=== PATIENT | male | born 1990 | race Caucasian/White ===

== ENCOUNTER 2024-02-26 13:07 | Emergency (ER) | payer OTHER, MEDICAID ==
[~2024-02-26] VITALS: Ht 180.3 cm; Wt 58.9 kg
[2024-02-26 14:19] LABS: Basophils # (auto) 0.1 10 ^3/uL (0-0.2); Basophils % (auto) 0.8 % (0.0-2.0); Eosinophils # (auto) 0.4 10 ^3/uL (0-0.8); Eosinophils % (auto) 3.6 % (0.0-7.0); Hematocrit 44.4 % (41.0-53.0); Hemoglobin 15.7 g/dL (13.5-17.5); Lymphocytes # (auto) 2.5 10 ^3/uL (0.4-5.4); Lymphocytes % (auto) 25.1 % (10.0-50.0); Mean Corpuscular Hemoglobin 33.8 pg (28.0-32.0); Mean Corpuscular Hgb Conc. 35.4 g/dL (32.0-36.0); Mean Corpuscular Volume 95.3 fL (80.0-100.0); Monocytes # (auto) 0.9 10 ^3/uL (0-1.3); Monocytes % (auto) 9.3 % (0.0-12.0); Neutrophils % (auto) 61.2 % (37.0-80.0); Platelet Count (auto) 237 10^3/uL (140-450); Red Blood Cells 4.66 10^6/uL (4.5-5.90); Red Cell Distribution Width 13.4 % (11.8-14.3); White Blood Cell 9.9 10^3/uL (4.4-10.8)
[2024-02-26 14:41] LABS: Chloride 108 mmol/L (98-107); Potassium 4.4 mmol/L (3.5-5.1); Sodium 140 mmol/L (136-145)
[2024-02-26 14:42] LABS: Anion Gap 5 (5-15); Carbon Dioxide 27 mmol/L (20-31)
[2024-02-26 14:43] LABS: Calcium 9.3 mg/dL (8.7-10.4)
[2024-02-26 14:47] LABS: Glucose 94 mg/dL (74-106)
[2024-02-26 14:48] LABS: BUN/Creatinine Ratio 11.4 (10.0-20.0); Blood Urea Nitrogen 10 mg/dL (9-23)
[2024-02-26 15:08] VITALS: BP 115/77; PULSE 66; RESP 17; TEMP 98.1; O2SAT 100
[2024-02-26] MEDS ORDERED: IOHEXOL 300 MG/ML 100ML BOTTLE IJ ONE (15:25)
[2024-02-26] MEDS ORDERED: MORPHINE SULFATE 4 MG/ML SYR/VIAL IV ONE (16:30)
[2024-02-26] MEDS ORDERED: ONDANSETRON HCL 4 MG/2 ML VIAL IV ONE (16:30)
[2024-02-26 18:22] LABS: INR 1.06 (0.9-1.15); Partial Thromboplastin Time 29.8 SEC (24.5-34.5); Prothrombin Time 11.2 sec (9.3-11.8)
== END 2024-02-26 20:44 | disposition left against medical advice (07) ==
LOC: ER 13:07
DX: K40.90 Unilateral inguinal hernia, without obstruction or gangrene, not specified as recurrent (principal); F17.210 Nicotine dependence, cigarettes, uncomplicated; F12.90 Cannabis use, unspecified, uncomplicated
CPT/HCPCS: 36415; 74177; 80048; 85025; 85610; 85730; 99285; Q9967

== ENCOUNTER 2024-02-27 07:02 | Inpatient (IN) | payer OTHER, MEDICAID ==
[~2024-02-27] VITALS: Ht 180.3 cm; Wt 60.6 kg
[2024-02-27 08:20] LABS: Basophils # (auto) 0.1 10 ^3/uL (0-0.2); Eosinophils # (auto) 0.4 10 ^3/uL (0-0.8); Eosinophils % (auto) 5.1 % (0.0-7.0); Hematocrit 44.4 % (41.0-53.0); Hemoglobin 15.7 g/dL (13.5-17.5); Lymphocytes % (auto) 22.6 % (10.0-50.0); Mean Corpuscular Hemoglobin 33.8 pg (28.0-32.0); Mean Corpuscular Hgb Conc. 35.4 g/dL (32.0-36.0); Mean Corpuscular Volume 95.4 fL (80.0-100.0); Monocytes # (auto) 0.8 10 ^3/uL (0-1.3); Monocytes % (auto) 9.6 % (0.0-12.0); Neutrophils # (auto) 5.4 10 ^3/uL (1.6-8.6); Neutrophils % (auto) 61.7 % (37.0-80.0); Nucleated Red Blood Cells % 0.1 %; Platelet Count (auto) 237 10^3/uL (140-450); Red Blood Cells 4.65 10^6/uL (4.5-5.90); Red Cell Distribution Width 13.4 % (11.8-14.3); White Blood Cell 8.8 10^3/uL (4.4-10.8)
[2024-02-27 08:27] LABS: Chloride 108 mmol/L (98-107); Potassium 4.3 mmol/L (3.5-5.1); Sodium 140 mmol/L (136-145)
[2024-02-27 08:28] LABS: Anion Gap 6 (5-15); Calcium 9.5 mg/dL (8.7-10.4); Carbon Dioxide 26 mmol/L (20-31)
[2024-02-27 08:33] LABS: BUN/Creatinine Ratio 8.1 (10.0-20.0); Blood Urea Nitrogen 7 mg/dL (9-23); Glucose 87 mg/dL (74-106)
[2024-02-27 13:32] LABS: Urine Bacteria None Seen /hpf (None Seen); Urine WBC None Seen /hpf (0 - 3)
[2024-02-27 14:05] LABS: Urine Blood Negative /uL (Negative); Urine Clarity Clear (Clear); Urine Color Light-Yellow (Yellow); Urine Protein, UAD Negative (Negative); Urine Specific Gravity 1.011 (1.001-1.035); Urine Urobilinogen Normal (Negative)
[2024-02-27] MEDS ORDERED: NITROGLYCERIN 0.4 MG SL TAB SL PRN (14:45)
[2024-02-27] MEDS ORDERED: MORPHINE SULFATE INJ 2 MG/ml SYRG IV PRN (14:45)
[2024-02-27] MEDS ORDERED: DOCUSATE SOD 100 MG CAP PO PRN (14:45)
[2024-02-27] MEDS ORDERED: ONDANSETRON HCL 4 MG/2 ML VIAL IV PRN (14:45)
[2024-02-27] MEDS: HYDROcodone-ACET 5/325MG TAB PO ONE (14:46)
[2024-02-27 15:45] VITALS: PULSE 55; RESP 18; O2SAT 97
[2024-02-27 16:40] VITALS: BP 114/76; PULSE 57; RESP 16; TEMP 98.3; O2SAT 100
[2024-02-27 16:44] LABS: INR 1.06 (0.9-1.15); Partial Thromboplastin Time 28.2 SEC (24.5-34.5); Prothrombin Time 11.2 sec (9.3-11.8)
[2024-02-27 17:00] VITALS: BP 116/76; PULSE 56; RESP 16; TEMP 98.2; O2SAT 100
[2024-02-27] MEDS: SODIUM CHLORIDE 0.9% 1,000 ML IV SCH (17:06)
[2024-02-27 17:23] VITALS: BP 114/76; PULSE 57; RESP 16; TEMP 98.3; O2SAT 100
[2024-02-27] MEDS ORDERED: ceFAZolin 1GM/50ML 50 ML IV ONE (18:30)
[2024-02-27] MEDS: ceFAZolin 1GM/50ML 50 ML IV SCH (20:20)
[2024-02-27 23:16] VITALS: BP 106/65; PULSE 57; RESP 18; TEMP 98.2; O2SAT 98
[2024-02-28] MEDS ORDERED: fentaNYL CITRATE 100 MCG/2 ML VL ONE (08:20)
[2024-02-28] MEDS ORDERED: MIDAZOLAM HCL 2MG/2ML 2ml VIAL (1mg/ml) ONE (08:20)
[2024-02-28] MEDS ORDERED: PROPOFOL 10 MG/ML 20 ML IV ONE (08:20)
[2024-02-28] MEDS ORDERED: ROCURONIUM 10MG/ML 10ML VIAL IV ONE (08:20)
[2024-02-28] MEDS ORDERED: ONDANSETRON HCL 4 MG/2 ML VIAL ONE (08:21)
[2024-02-28] MEDS ORDERED: LIDOCAINE 2% (LOCAL ANESTH.) PF 5ml SDV ONE (08:21)
[2024-02-28] MEDS: LIDOCAINE W/ EPINEPHRINE 1% 20ML VIAL ONE (08:43)
[2024-02-28] MEDS: BUPIVACAINE 0.25% INJ 50ML VIAL ONE (08:43)
[2024-02-28] MEDS ORDERED: MEPERIDINE HCL (25 MG/ML) 1ML VIAL ONE (08:58)
[2024-02-28 09:00] VITALS: BP 113/64; PULSE 54; RESP 18; TEMP 97.5; O2SAT 100
[2024-02-28] MEDS ORDERED: ceFAZolin 1GM VL ONE (09:12)
[2024-02-28] MEDS ORDERED: HYDROmorphone HCL 2 MG/ML VL/or syr IV PRN (09:15)
[2024-02-28] MEDS ORDERED: ONDANSETRON HCL 4 MG/2 ML VIAL IV PRN (09:15)
[2024-02-28 09:34] VITALS: PULSE 60; RESP 13; O2SAT 99
[2024-02-28] MEDS ORDERED: GLYCOPYRROLATE 0.2 MG/ML 1ML VIAL ONE (09:37)
[2024-02-28] MEDS ORDERED: NEOSTIGMINE 1 MG/ML INJ (10mg/10ML VIAL) ONE (09:37)
[2024-02-28] MEDS: KETOROLAC TROMETH 30 MG/ML 1ML VIAL IV ONE (09:45)
[2024-02-28] MEDS: MORPHINE SULFATE INJ 2 MG/ml SYRG IV PRN ×2 (10:14→14:23)
[2024-02-28] MEDS: MEPERIDINE HCL (25 MG/ML) 1ML VIAL IV ONE (10:32)
[2024-02-28] MEDS: MEPERIDINE HCL (25 MG/ML) 1ML VIAL ONE (10:32)
[2024-02-28] MEDS: ONDANSETRON HCL 4 MG/2 ML VIAL IV ONE (10:43)
[2024-02-28] MEDS: PANTOPRAZOLE 40 MG/10 ML VIAL INJ IV SCH (12:37)
[2024-02-28] MEDS: D5W/SOD CHL 0.45%/KCL 20MEQ 1,000 ML IV SCH (12:37)
[2024-02-28 13:00] VITALS: BP 111/62; PULSE 54; RESP 20; TEMP 98.2; O2SAT 99
[2024-02-28] MEDS: ceFAZolin 2 GM/D5W50ml 50 ML IV SCH (14:00)
[2024-02-28 14:35] LABS: Basophils # (auto) 0.1 10 ^3/uL (0-0.2); Basophils % (auto) 0.4 % (0.0-2.0); Eosinophils # (auto) 0.2 10 ^3/uL (0-0.8); Eosinophils % (auto) 1.6 % (0.0-7.0); Hematocrit 39.9 % (41.0-53.0); Hemoglobin 13.9 g/dL (13.5-17.5); Lymphocytes % (auto) 15.2 % (10.0-50.0); Mean Corpuscular Hemoglobin 33.2 pg (28.0-32.0); Mean Corpuscular Hgb Conc. 34.9 g/dL (32.0-36.0); Mean Corpuscular Volume 95.2 fL (80.0-100.0); Monocytes # (auto) 0.9 10 ^3/uL (0-1.3); Monocytes % (auto) 6.8 % (0.0-12.0); Neutrophils # (auto) 10.1 10 ^3/uL (1.6-8.6); Platelet Count (auto) 204 10^3/uL (140-450); Red Blood Cells 4.19 10^6/uL (4.5-5.90); White Blood Cell 13.3 10^3/uL (4.4-10.8)
[2024-02-28 14:54] LABS: Alanine Aminotransferase 18 U/L (7-40); Albumin 3.9 g/dL (3.2-4.8); Alkaline Phosphatase 46 U/L (46-116); Anion Gap 7 (5-15); Aspartate Aminotransferase 13 U/L (13-40); BUN/Creatinine Ratio 11.9 (10.0-20.0); Bilirubin, Total 0.6 mg/dL (0.2-1.0); Blood Urea Nitrogen 10 mg/dL (9-23); Calcium 8.7 mg/dL (8.7-10.4); Carbon Dioxide 24 mmol/L (20-31); Chloride 110 mmol/L (98-107); Glucose 93 mg/dL (74-106); Potassium 3.8 mmol/L (3.5-5.1); Sodium 141 mmol/L (136-145)
[2024-02-28 17:00] VITALS: BP 99/66; PULSE 56; RESP 21; TEMP 99.9; O2SAT 97
[2024-02-28] MEDS: ACETAMINOPHEN/CODEINE#3 (300/30mg) TAB PO PRN (17:15)
[2024-02-28 21:00] VITALS: BP 120/61; PULSE 57; RESP 20; TEMP 98.1; O2SAT 96
[2024-02-29] VITALS (7 sets, daily range): BP systolic 97–129; BP diastolic 50–74; PULSE 52–66; RESP 16–20; TEMP 98.1–98.6; O2SAT 96–100
[2024-03-01 05:00] VITALS: BP 111/61; PULSE 59; RESP 17; TEMP 98.5; O2SAT 96
[2024-03-01 08:00] VITALS: RESP 16
[2024-03-01 13:00] VITALS: BP 122/73; PULSE 64; RESP 18; TEMP 97.7; O2SAT 98
[2024-03-01] MEDS ORDERED: METR-344 PO ×2 (13:32)
[2024-03-01] MEDS ORDERED: HYDR-4902 PO ×2 (13:32)
[2024-03-01] MEDS ORDERED: LEVO500T91 PO ×2 (13:32)
[2024-03-01 17:00] VITALS: BP_SYST 116; BP_SYST 140; BP_DIAS 77; BP_DIAS 90; PULSE 53; PULSE 85; RESP 18; RESP 20; TEMP 97.2; TEMP 97.8; O2SAT 95; O2SAT 97
== END 2024-03-01 19:00 | disposition home or self-care (01) | DRG 351 ==
LOC: ER 07:02 → OVERFLOW 14:47 → WEST WING 16:34
PROVIDERS: ADMIT Nurse Practitioner Family; ATTEND Family Medicine
PROC: 0YQ70ZZ Repair Right Femoral Region, Open Approach (ICD-10-PCS; 2024-02-28)
PROC: 0DBU0ZZ Excision of Omentum, Open Approach (ICD-10-PCS; principal; 2024-02-28 08:20)
DX: K41.30 Unilateral femoral hernia, with obstruction, without gangrene, not specified as recurrent (principal); K40.30 Unilateral inguinal hernia, with obstruction, without gangrene, not specified as recurrent; E86.0 Dehydration; N28.1 Cyst of kidney, acquired; F17.210 Nicotine dependence, cigarettes, uncomplicated; Z79.899 Other long term (current) drug therapy
CPT/HCPCS: 36415; 76705; 80048; 80053; 81001; 85025; 85610; 85730; 86850; 86900; 86901; 99291; C1781; G0378; J0690; J2001; J2250; J2405; J2470; J2704; J3490